=== PATIENT | male | born 1985 | race African-American/Black ===

== ENCOUNTER 2018-04-05 23:08 | Inpatient (IN) | payer OTHER ==
[2018-04-06] MEDS: ONDANSETRON 4 MG INJ IV (00:47)
[2018-04-06] MEDS: LIDOCAINE/MYLANTA 40 ML BTL PO (00:47)
[2018-04-06] MEDS: SOD CHLORIDE 0.9% 1,000 ML IV (00:48)
[2018-04-06] MEDS: PANTOPRAZOLE 40 MG INJ IV ×2 (00:48→17:05)
[2018-04-06] MEDS: morphine 4 MG/ML VIAL IV (00:48)
[2018-04-06 01:06] LABS: ADD MAN DIFF? NO
[2018-04-06 01:07] LABS: BASOPHILS % 0.2 % (0.0-2.0); EOSINOPHILS # 0.1 10^3/ul (0.0-0.5); EOSINOPHILS % 1.7 % (0.0-7.0); HEMATOCRIT 28.1 % (42.0-52.0); HEMOGLOBIN 8.4 g/dl (14.0-18.0); LYMPHOCYTES # 1.4 10^3/ul (0.8-2.9); LYMPHOCYTES % 28.7 % (15.0-51.0); MEAN CORPUSCULAR HEMOGLOBIN 21.5 pg (29.0-33.0); MEAN CORPUSCULAR HGB CONC 29.9 g/dl (32.0-37.0); MEAN CORPUSCULAR VOLUME 71.9 fl (82.0-101.0); MEAN PLATELET VOLUME 8.7 fl (7.4-10.4); MONOCYTE # 0.4 10^3/ul (0.3-0.9); MONOCYTES % 7.7 % (0.0-11.0); NEUTROPHILS % 61.7 % (39.0-77.0); PLATELET COUNT 462 10^3/UL (140-415); RED BLOOD COUNT 3.91 10^6/ul (4.70-6.10); RED CELL DISTRIBUTION WIDTH 19.4 % (11.5-14.5)
[2018-04-06 01:07] LABS: WHITE BLOOD COUNT 4.8 10^3/ul (4.8-10.8)
[2018-04-06 01:25] LABS: ALANINE AMINOTRANSFERASE 19 IU/L (13-69); ALBUMIN 4.3 g/dl (3.3-4.9); ALBUMIN/GLOBULIN RATIO 1.43; ALKALINE PHOSPHATASE 37 IU/L (42-121); ANION GAP 12 (8-16); ASPARTATE AMINO TRANSFERASE 19 IU/L (15-46); BILIRUBIN,INDIRECT 0.7 mg/dl (0-1.1); BILIRUBIN,TOTAL 0.7 mg/dl (0.2-1.3); BLOOD UREA NITROGEN 10 mg/dl (7-20); CALCIUM 9.1 mg/dl (8.4-10.2); CARBON DIOXIDE 27 mmol/L (21-31); CHLORIDE 102 mmol/L (97-110); CREATININE 0.99 mg/dl (0.61-1.24); GLUCOSE 97 mg/dl (70-220); LIPASE 86 U/L (23-300); POTASSIUM 3.3 mmol/L (3.5-5.1); SODIUM 138 mmol/L (135-144); TOTAL PROTEIN 7.3 g/dl (6.1-8.1)
[2018-04-06 01:34] LABS: INR 1.04; PARTIAL THROMBOPLASTIN TIME 28.1 Sec (25.0-35.0); PROTIME 13.7 Sec (11.9-14.9); PT RATIO 1.1
[2018-04-06 02:15] LABS: ADD UMIC NO; UR ASCORBIC ACID NEGATIVE (NEGATIVE); UR BILIRUBIN (Dip) NEGATIVE (NEGATIVE); UR BLOOD (Dip) NEGATIVE (NEGATIVE); UR CLARITY CLEAR (CLEAR); UR COLOR YELLOW (YELLOW); UR GLUCOSE (Dip) NEGATIVE (NEGATIVE); UR KETONES (Dip) 1+ mg/dL (NEGATIVE); UR LEUKOCYTE ESTERASE (Dip) NEGATIVE Leu/ul (NEGATIVE); UR NITRITE (Dip) NEGATIVE (NEGATIVE); UR TOTAL PROTEIN (Dip) NEGATIVE (NEGATIVE); UR UROBILINOGEN (Dip) 1+ mg/dL (NEGATIVE)
[2018-04-06] MEDS: PANTOPRAZOLE IV 80 MG in SOD CHLORIDE 0.9% 100 ML IV (02:47)
[2018-04-06] MEDS: morphine 2 MG INJ IV ×3 (07:12→21:47)
[2018-04-06] MEDS ORDERED: ONDANSETRON 4 MG INJ IV (14:00)
[2018-04-06] MEDS ORDERED: METOCLOPRAMIDE 10 MG INJ IV (16:00)
[2018-04-06 16:08] LABS: IRON 39 ug/dl (35-150)
[2018-04-06 16:18] LABS: % IRON SATURATION 8 % SAT (22-52); TOTAL IRON BINDING CAPACITY 492 ug/dl (241-421)
[2018-04-06] MEDS: POTASSIUM CHLORIDE (SR) 20 MEQ TAB PO (17:05)
[2018-04-06 17:15] LABS: FERRITIN 7.9 ng/ml (17.9-464.0)
[2018-04-06 17:45] LABS: FOLATE 7.8 ng/ml (2.8-20.0)
[2018-04-06 21:51] LABS: HEMATOCRIT 27.8 % (42.0-52.0); HEMOGLOBIN 8.2 g/dl (14.0-18.0)
[2018-04-07] MEDS ORDERED: AL HYDROX/MG HYDROX/SIMETH 30 ML CUP PO (04:30)
[2018-04-07 06:09] LABS: ADD MAN DIFF? NO
[2018-04-07 06:15] LABS: BASOPHILS % 0.5 % (0.0-2.0); EOSINOPHILS # 0.1 10^3/ul (0.0-0.5); EOSINOPHILS % 1.5 % (0.0-7.0); HEMATOCRIT 27.1 % (42.0-52.0); LYMPHOCYTES # 1.9 10^3/ul (0.8-2.9); LYMPHOCYTES % 47.9 % (15.0-51.0); MEAN CORPUSCULAR HEMOGLOBIN 21.2 pg (29.0-33.0); MEAN CORPUSCULAR HGB CONC 29.5 g/dl (32.0-37.0); MEAN CORPUSCULAR VOLUME 71.7 fl (82.0-101.0); MEAN PLATELET VOLUME 9.4 fl (7.4-10.4); MONOCYTE # 0.3 10^3/ul (0.3-0.9); MONOCYTES % 7.1 % (0.0-11.0); NEUTROPHIL # 1.7 10^3/ul (1.6-7.5); NEUTROPHILS % 42.7 % (39.0-77.0); PLATELET COUNT 424 10^3/UL (140-415); RED BLOOD COUNT 3.78 10^6/ul (4.70-6.10); RED CELL DISTRIBUTION WIDTH 19.1 % (11.5-14.5)
[2018-04-07] MEDS: PANTOPRAZOLE 40 MG INJ IV (06:16)
[2018-04-07 06:35] LABS: INR 0.95; PROTIME 12.8 Sec (11.9-14.9)
[2018-04-07 06:36] LABS: PARTIAL THROMBOPLASTIN TIME 27.3 Sec (25.0-35.0)
[2018-04-07 07:01] LABS: ALANINE AMINOTRANSFERASE 19 IU/L (13-69); ALBUMIN 3.7 g/dl (3.3-4.9); ALBUMIN/GLOBULIN RATIO 1.27; ALKALINE PHOSPHATASE 33 IU/L (42-121); ANION GAP 11 (8-16); ASPARTATE AMINO TRANSFERASE 16 IU/L (15-46); BILIRUBIN,INDIRECT 0.2 mg/dl (0-1.1); BILIRUBIN,TOTAL 0.2 mg/dl (0.2-1.3); BLOOD UREA NITROGEN 11 mg/dl (7-20); CALCIUM 9.1 mg/dl (8.4-10.2); CARBON DIOXIDE 26 mmol/L (21-31); CHLORIDE 108 mmol/L (97-110); CREATININE 1.06 mg/dl (0.61-1.24); GLUCOSE 87 mg/dl (70-220); SODIUM 141 mmol/L (135-144); TOTAL PROTEIN 6.6 g/dl (6.1-8.1)
== END 2018-04-07 14:08 | disposition left against medical advice (07) | DRG 379 ==
LOC: FTE 23:08 → MS4 04-06 02:31
DX: K92.0 Hematemesis (principal); E87.6 Hypokalemia; F12.90 Cannabis use, unspecified, uncomplicated; F10.10 Alcohol abuse, uncomplicated; D64.9 Anemia, unspecified; Z87.11 Personal history of peptic ulcer disease; Z53.21 Procedure and treatment not carried out due to patient leaving prior to being seen by health care provider
CPT/HCPCS: 36415; 76705; 80053; 81003; 82607; 82728; 82746; 83540; 83690; 85014; 85018; 85025; 85610; 85730; 96374; 96375; 96376; 99285-25

== ENCOUNTER → 2018-05-20 18:00 | Inpatient (IN) | payer OTHER ==
[2018-05-18] MEDS: LIDOCAINE/MYLANTA 40 ML BTL PO (08:17)
[2018-05-18] MEDS: FAMOTIDINE 20 MG INJ IV (08:17)
[2018-05-18] MEDS: ONDANSETRON 4 MG INJ IV ×2 (08:17→19:00)
[2018-05-18] MEDS: ACETAMINOPHEN 325 MG TAB PO (08:18)
[2018-05-18] MEDS: SOD CHLORIDE 0.9% 1,000 ML IV (08:19)
[2018-05-18 08:26] LABS: ADD MAN DIFF? NO
[2018-05-18 08:29] LABS: WHITE BLOOD COUNT 9.2 10^3/ul (4.8-10.8)
[2018-05-18 08:29] LABS: ABNORMAL IP MESSAGE 1; BASOPHILS % 0.2 % (0.0-2.0); EOSINOPHILS % 0.1 % (0.0-7.0); HEMATOCRIT 30.8 % (42.0-52.0); LYMPHOCYTES # 1.6 10^3/ul (0.8-2.9); LYMPHOCYTES % 17.1 % (15.0-51.0); MEAN CORPUSCULAR HEMOGLOBIN 19.1 pg (29.0-33.0); MEAN CORPUSCULAR HGB CONC 29.2 g/dl (32.0-37.0); MEAN CORPUSCULAR VOLUME 65.4 fl (82.0-101.0); MEAN PLATELET VOLUME 9.1 fl (7.4-10.4); MONOCYTE # 0.5 10^3/ul (0.3-0.9); MONOCYTES % 5.6 % (0.0-11.0); NEUTROPHILS % 76.7 % (39.0-77.0); PLATELET COUNT 574 10^3/UL (140-415); POSITIVE DIFF @See below; RED BLOOD COUNT 4.71 10^6/ul (4.70-6.10); RED CELL DISTRIBUTION WIDTH 22.2 % (11.5-14.5)
[2018-05-18] MEDS: morphine 10 MG INJ IV (08:30)
[2018-05-18 08:46] LABS: ALANINE AMINOTRANSFERASE 21 IU/L (13-69); ALBUMIN/GLOBULIN RATIO 1.47; ALKALINE PHOSPHATASE 45 IU/L (42-121); ANION GAP 19 (8-16); ASPARTATE AMINO TRANSFERASE 29 IU/L (15-46); BILIRUBIN,INDIRECT 1.1 mg/dl (0-1.1); BILIRUBIN,TOTAL 1.1 mg/dl (0.2-1.3); BLOOD UREA NITROGEN 14 mg/dl (7-20); CALCIUM 9.4 mg/dl (8.4-10.2); CARBON DIOXIDE 25 mmol/L (21-31); CHLORIDE 98 mmol/L (97-110); CREATININE 0.88 mg/dl (0.61-1.24); GLUCOSE 93 mg/dl (70-220); LIPASE 71 U/L (23-300); POTASSIUM 3.6 mmol/L (3.5-5.1); SODIUM 138 mmol/L (135-144); TOTAL PROTEIN 8.4 g/dl (6.1-8.1)
[2018-05-18 08:59] LABS: ADD UMIC YES; UR ASCORBIC ACID NEGATIVE (NEGATIVE); UR BACTERIA FEW /HPF (NONE SEEN); UR BILIRUBIN (Dip) NEGATIVE (NEGATIVE); UR BLOOD (Dip) NEGATIVE (NEGATIVE); UR CLARITY CLEAR (CLEAR); UR COLOR YELLOW (YELLOW); UR GLUCOSE (Dip) NEGATIVE (NEGATIVE); UR KETONES (Dip) 2+ mg/dL (NEGATIVE); UR LEUKOCYTE ESTERASE (Dip) NEGATIVE Leu/ul (NEGATIVE); UR MUCUS MANY /HPF (NONE SEEN); UR NITRITE (Dip) NEGATIVE (NEGATIVE); UR RBC 1 /HPF (0-5); UR SPECIFIC GRAVITY (Dip) 1.039 (1.003-1.030); UR TOTAL PROTEIN (Dip) 1+ mg/dl (NEGATIVE); UR UROBILINOGEN (Dip) 1+ mg/dL (NEGATIVE); UR WBC 3 /HPF (0-5)
[2018-05-18] MEDS: PANTOPRAZOLE 40 MG INJ IV ×2 (10:17→18:01)
[2018-05-18] MEDS: DIPHENHYDRAMINE 50 MG INJ IV (10:17)
[2018-05-18] MEDS: METOCLOPRAMIDE 10 MG INJ IV (10:17)
[2018-05-18] MEDS: HYDROCODONE/APAP (5/325) TAB PO (14:18)
[2018-05-18 14:56] LABS: HEMATOCRIT 30.5 % (42.0-52.0)
[2018-05-18] MEDS: DEXTROSE 5%-0.45% NACL 1,000 ML IV (18:02)
[2018-05-18] MEDS: morphine 2 MG INJ IV (19:00)
[2018-05-19] MEDS: DEXTROSE 5%-0.45% NACL 1,000 ML IV ×2 (05:16→09:02)
[2018-05-19] MEDS: PANTOPRAZOLE 40 MG INJ IV ×2 (05:17→17:07)
[2018-05-19] MEDS: morphine 2 MG INJ IV ×3 (05:24→22:29)
[2018-05-19 06:32] LABS: ADD MAN DIFF? NO
[2018-05-19 06:35] LABS: BASOPHILS % 0.5 % (0.0-2.0); EOSINOPHILS % 0.6 % (0.0-7.0); HEMATOCRIT 28.9 % (42.0-52.0); HEMOGLOBIN 8.4 g/dl (14.0-18.0); LYMPHOCYTES # 1.6 10^3/ul (0.8-2.9); LYMPHOCYTES % 23.6 % (15.0-51.0); MEAN CORPUSCULAR HEMOGLOBIN 19.2 pg (29.0-33.0); MEAN CORPUSCULAR HGB CONC 29.1 g/dl (32.0-37.0); MEAN CORPUSCULAR VOLUME 66.1 fl (82.0-101.0); MEAN PLATELET VOLUME 9.3 fl (7.4-10.4); MONOCYTE # 0.6 10^3/ul (0.3-0.9); MONOCYTES % 8.3 % (0.0-11.0); NEUTROPHIL # 4.4 10^3/ul (1.6-7.5); NEUTROPHILS % 66.7 % (39.0-77.0); PLATELET COUNT 541 10^3/UL (140-415); RED BLOOD COUNT 4.37 10^6/ul (4.70-6.10); RED CELL DISTRIBUTION WIDTH 21.8 % (11.5-14.5)
[2018-05-19 06:35] LABS: WHITE BLOOD COUNT 6.6 10^3/ul (4.8-10.8)
[2018-05-19 08:09] LABS: HEMOGLOBIN A1C 6.3 % (0-5.9)
[2018-05-19] MEDS: ONDANSETRON 4 MG INJ IV (09:14)
[2018-05-19 11:25] LABS: INR 1.04; PROTIME 13.7 Sec (11.9-14.9); PT RATIO 1.1
[2018-05-20] MEDS: PANTOPRAZOLE 40 MG INJ IV (06:04)
[2018-05-20] MEDS: morphine 2 MG INJ IV ×2 (06:05→14:56)
[2018-05-20 06:10] LABS: HEMATOCRIT 28.4 % (42.0-52.0); HEMOGLOBIN 8.2 g/dl (14.0-18.0)
[2018-05-20 15:07] LABS: HEMATOCRIT 29.5 % (42.0-52.0); HEMOGLOBIN 8.5 g/dl (14.0-18.0)
[~2018-05-20 18:00] MED LIST: ACETAMINOPHEN 325 MG TAB PO; FENTAnyl 50 MCG/ML VIAL; FENTAnyl 50 MCG/ML VIAL IV; METOCLOPRAMIDE 10 MG INJ IV; MIDAZOLAM 1 MG/ML 2 ML INJ; NACL 0.9% 3 ML SYG IV; ONDANSETRON 4 MG INJ IV; OXYCODONE/ACETAMINOPHEN (5/325) TAB PO; PROPOFOL 200 MG INJ; PROPOFOL 40 ML
== END | disposition home or self-care (01) | DRG 379 ==
PROC: 0DB78ZX Excision of Stomach, Pylorus, Via Natural or Artificial Opening Endoscopic, Diagnostic (ICD-10-PCS; principal; 2018-05-19 12:00)
DX: K26.0 Acute duodenal ulcer with hemorrhage (principal); F10.10 Alcohol abuse, uncomplicated; K29.71 Gastritis, unspecified, with bleeding; D50.9 Iron deficiency anemia, unspecified; K20.8 Other esophagitis; B96.81 Helicobacter pylori [H. pylori] as the cause of diseases classified elsewhere; K44.9 Diaphragmatic hernia without obstruction or gangrene; Z87.11 Personal history of peptic ulcer disease
CPT/HCPCS: 36415; 76705; 80053; 81001; 83036; 83690; 85014; 85018; 85025; 85610; 86850; 86900; 86901; 88305; 88312; 96374; 96375; 99285-25